=== PATIENT | male | born 1970 | race American Indian/Alaskan Native ===

== ENCOUNTER 2018-05-30 03:40 | Emergency (ER) | payer SELFPAY ==
--- NOTE | 2018-05-30 07:08 | Emergency Department Report ---
ED Psych HPI - General Chief Complaint: Medical Clearance Stated Complaint: ANXIETY WITH ANGER ISSUES Time Seen by Provider: 05/30/18 06:20 Source: patient Mode of arrival: Ambulatory - History of Present Illness Initial Comments: This is a 47-year-old gentleman with a psychiatric history who has run out of his olanzapine. He states "I was trying to get attention from my so I started out in the rain.". He states that he thinks he needs counseling session and knows that this was inappropriate behavior. He is not currently are a 1013. There is been no police involvement. The patient states that he really thinks he can get back on his medicine and he should be fine. He is specifically denying any paranoid ideation, suicidal thoughts or intent to harm others. He is really quite coherent at the time of my interview. He states that he has a private psychiatrist. He states he knows that what he did was attention seeking and didn't make sense. He states that he has options for near-term counseling. He is simply requesting that his medication be renewed. Complaint: other -: Gradual Associated Psychiatric Symptoms: other History of same: Yes Quality: resolved prior to arrival Improves With: none Worsens With: none Context: not taking psychiatric Associated Symptoms: denies other symptoms Treatments Prior to Arrival: none - Related Data Previous Rx's Medication Instructions Recorded Last Taken Type OLANZapine [Zyprexa Zydis] 10 mg PO DAILY #30 tab.rapdis 05/30/18 Unknown Rx Allergies Allergy/AdvReac Type Severity Reaction Status Date / Time No Known Allergies Allergy Unverified 05/30/18 04:22 ED Review of Systems ROS: Stated complaint: ANXIETY WITH ANGER ISSUES Other details as noted in HPI Constitutional: denies: chills, fever Eyes: denies: eye pain, eye discharge, vision change ENT: denies: ear pain, throat pain Respiratory: denies: cough, shortness of breath, wheezing Cardiovascular: denies: chest pain, palpitations Endocrine: no symptoms reported Gastrointestinal: denies: abdominal pain, nausea, diarrhea Genitourinary: denies: urgency, dysuria Musculoskeletal: denies: back pain, joint swelling, arthralgia Skin: denies: rash, lesions Neurological: denies: headache, weakness, paresthesias Psychiatric: as per HPI, other. denies: anxiety, depression, auditory hallucinations, visual hallucinations, homicidal thoughts, suicidal thoughts Hematological/Lymphatic: denies: easy bleeding, easy bruising ED Past Medical Hx - Past Medical History Previous Medical History?: Yes Hx Psychiatric Treatment: Yes (paranoid schizophrenia, anxiety) - Surgical History Past Surgical History?: No - Social History Smoking Status: Current Some Day Smoker Substance Use Type: None - Medications Home Medications: Home Medications Medication Instructions Recorded Confirmed Last Taken Type OLANZapine [Zyprexa Zydis] 10 mg PO DAILY #30 tab.rapdis 05/30/18 Unknown Rx ED Physical Exam - General Limitations: No Limitations General appearance: alert, in no apparent distress - Head Head exam: Present: atraumatic, normocephalic - Eye Eye exam: Present: normal appearance - ENT ENT exam: Present: mucous membranes moist - Neck Neck exam: Present: normal inspection - Respiratory Respiratory exam: Present: normal lung sounds bilaterally. Absent: respiratory distress - Cardiovascular Cardiovascular Exam: Present: regular rate, normal rhythm. Absent: systolic murmur, diastolic murmur, rubs, gallop - GI/Abdominal GI/Abdominal exam: Present: soft, normal bowel sounds. Absent: distended, tenderness, guarding, rebound, rigid - Rectal Rectal exam: Present: deferred - Extremities Exam Extremities exam: Present: normal inspection - Back Exam Back exam: Present: normal inspection - Neurological Exam Neurological exam: Present: alert, oriented X3, CN II-XII intact. Absent: motor sensory deficit - Psychiatric Psychiatric exam: Present: normal affect, normal mood, other (good reality testing) - Skin Skin exam: Present: warm, dry, intact, normal color. Absent: rash ED Course Vital Signs 05/30/18 04:00 Temperature 97.9 F Pulse Rate 92 H Respiratory 18 Rate Blood Pressure 150/109 O2 Sat by Pulse 98 Oximetry - Reevaluation(s) Reevaluation #1: The patient's request appears appropriate at this time. I will issue his psychiatric medication short-term. He will follow-up with his usual care provider. He is appropriate for outpatient disposition. He meets no criteria for involuntary confinement. 05/30/18 07:07 Critical care attestation.: If time is entered above; I have spent that time in minutes in the direct care of this critically ill patient, excluding procedure time. ED Disposition Clinical Impression: Situational anxiety Schizophrenia Qualifiers: Schizophrenia type: schizophreniform disorder Qualified Code(s): F20.81 - Schizophreniform disorder Disposition: DC-01 TO HOME OR SELFCARE Is pt being admited?: No Does the pt Need Aspirin: No Condition: Stable Instructions: Schizophrenia (ED) Additional Instructions: Return to the emergency department any further difficulty as needed. Urine medication has been renewed. This does not mean that you should not follow up with her psychiatrist as soon as possible. I do agree that counseling should be of benefit. You stated that you can set this up. Prescriptions: OLANZapine [Zyprexa Zydis] 10 mg PO DAILY #30 tab.rapdis Referrals: PRIMARY CARE, [Primary Care Provider] - 3-5 Days usual, psychiatric care providers [Other] - [facility] Time of Disposition: 07:08
== END 2018-05-30 07:35 | disposition home or self-care (01) ==
LOC: ED 03:40
CPT/HCPCS: 99282